=== PATIENT | male | born 1945 | race Caucasian/White ===

== ENCOUNTER 2021-05-10 05:58 | Day surgery (SDC) | payer MEDICARE ==
[~2021-05-10] VITALS: Ht 172.7 cm; Wt 59.8 kg
[2021-05-10] MEDS ORDERED: SODIUM CHLORIDE 0.9% 1,000 ML IV ONE (06:30)
[2021-05-10] MEDS ORDERED: QUER1POW PO (07:17)
[2021-05-10] MEDS ORDERED: [UNRECOGNIZED DRUG - CODE] PO (07:17)
[2021-05-10] MEDS ORDERED: VITA1TAB19 PO (07:17)
[2021-05-10] MEDS ORDERED: VITA40TA PEG (07:17)
[2021-05-10] MEDS ORDERED: ZINC30TA2 PO (07:17)
[2021-05-10] MEDS ORDERED: CHOL10003 PO (07:17)
[2021-05-10] MEDS ORDERED: ASCO500T93 PO (07:17)
[2021-05-10] MEDS ORDERED: CYAN50TA PO (07:17)
[2021-05-10] MEDS ORDERED: PROPOFOL 10 MG/ML, 20ML ONE (07:39)
== END 2021-05-10 09:37 | disposition home or self-care (01) ==
LOC: CACL 05:58
PROVIDERS: ATTEND Internal Medicine Cardiovascular Disease
DX: I34.1 Nonrheumatic mitral (valve) prolapse (principal); I10 Essential (primary) hypertension; E78.5 Hyperlipidemia, unspecified; Z20.822 Contact with and (suspected) exposure to COVID-19; Z79.899 Other long term (current) drug therapy; Z82.49 Family history of ischemic heart disease and other diseases of the circulatory system
CPT/HCPCS: 87635; 93312; 93321; 93325; J2704

== ENCOUNTER 2021-05-29 10:10 | Day surgery (SDC) | payer MEDICARE ==
[~2021-05-29] VITALS: Ht 172.7 cm; Wt 59.1 kg
[~2021-05-29 10:10] MED LIST: ASCO500T93 PO; CHOL10003 PO; CYAN50TA PO; QUER1POW PO; VITA1TAB19 PO; VITA40TA PO; ZINC30TA2 PO; [UNRECOGNIZED DRUG - CODE] PO
[2021-05-29] MEDS ORDERED: SODIUM CHLORIDE 0.9% 1,000 ML IV SCH ×2 (10:30→16:00)
[2021-05-29] MEDS ORDERED: LISI-167 PO (10:39)
[2021-05-29] MEDS ORDERED: GENSING (10:39)
[2021-05-29 10:44] VITALS: BP 158/78
[2021-05-29 11:19] LABS: BASOPHILS % (AUTO) 1 % (0-1); EOSINOPHILS % (AUTO) 1 % (1-7); LYMPHOCYTES % (AUTO) 24 % (22-44); MEAN CORPUSCULAR HEMOGLOBIN 30.8 pg (27.5-34.5); MEAN CORPUSCULAR HGB CONC 33.9 g/dL (33.2-36.2); MEAN PLATELET VOLUME 7.9 fL (7.4-10.4); MONOCYTES % (AUTO) 8 % (2-9); NEUTROPHILS % (AUTO) 66 % (42-75); PLATELET COUNT 241 x10^3/uL (130-400); RED BLOOD COUNT 4.83 x10^6/uL (4.38-5.82); RED CELL DISTRIBUTION WIDTH 13.5 % (9.4-14.8)
[2021-05-29 11:24] LABS: ANION GAP 6 mmol/L (5-15); CALCIUM 9.3 mg/dL (8.5-10.1); CHLORIDE 105 mmol/L (98-107); CREATININE 0.88 mg/dL (0.7-1.3)
[2021-05-29] MEDS ORDERED: HEPARIN 1,000 UNITS/ML, 10ML ONE (13:34)
[2021-05-29] MEDS ORDERED: LIDOCAINE-MPF 1%, 5ML ONE (13:34)
[2021-05-29] MEDS ORDERED: FENTANYL PF 100 MCG/2ML ONE (13:34)
[2021-05-29] MEDS ORDERED: MIDAZOLAM 1 MG/ML, 5ML ONE (13:34)
[2021-05-29] MEDS ORDERED: VERAPAMIL 2.5 MG/ML, 2ML ONE (13:34)
== END 2021-05-29 16:55 | disposition home or self-care (01) ==
LOC: CACL 10:10
PROVIDERS: ATTEND Internal Medicine Cardiovascular Disease
DX: I08.0 Rheumatic disorders of both mitral and aortic valves (principal); I25.10 Atherosclerotic heart disease of native coronary artery without angina pectoris; I10 Essential (primary) hypertension; E78.5 Hyperlipidemia, unspecified; F12.10 Cannabis abuse, uncomplicated
CPT/HCPCS: 36415; 80048; 85025; 93306; 93356; 93460; 99156; C1769; C1894; J1644; J2250; J3010; Q9967